=== PATIENT | female | born 1980 | race Caucasian/White ===

== ENCOUNTER 2019-04-22 22:39 | Emergency (ER) | payer SELFPAY ==
[2019-04-22 23:58] LABS: APPEARANCE,URINE CLEAR; BILIRUBIN,URINE NEGATIVE (NEGATIVE); GLUCOSE, URINE NEGATIVE (NEGATIVE); KETONES,URINE NEGATIVE (NEGATIVE); LEUKOCYTE ESTERASE,URINE NEGATIVE (NEGATIVE); NITRITE,URINE NEGATIVE (NEGATIVE); PROTEIN,URINE NEGATIVE (NEGATIVE); UROBILINOGEN,URINE NEGATIVE mg/dL (<2.0)
[2019-04-22 23:59] LABS: URINE SPECIFIC GRAVITY 1.016
[2019-04-23] LABS: COLOR,URINE DARK YELLOW
[2019-04-23 00:11] LABS: ABSOLUTE BASOPHILS # (AUTO) 0.1 10^3/uL (0.0-0.2); ABSOLUTE EOSINOPHILS # (AUTO) 0.2 10^3/uL (0.0-0.6); ABSOLUTE LYMPHOCYTES (AUTO) 1.9 10^3/uL (0.5-4.7); ABSOLUTE MONOCYTES (AUTO) 0.6 10^3/uL (0.1-1.4); BASOPHILS % (AUTO) 0.4 % (0-2); EOSINOPHILS % (AUTO) 1.5 % (0-6); HEMATOCRIT 39.4 % (36.0-47.0); HEMOGLOBIN 13.4 g/dL (12.0-15.5); LYMPHOCYTES % (AUTO) 15.1 % (13-45); MEAN CORPUSCULAR HEMOGLOBIN 32.2 pg (27.0-33.4); MEAN CORPUSCULAR HGB CONC 33.9 g/dL (32.0-36.0); MEAN CORPUSCULAR VOLUME 95 fl (80-97); MONOCYTES % (AUTO) 4.8 % (3-13); PLATELET COUNT 375 10^3/uL (150-450); RED BLOOD COUNT 4.15 10^6/uL (3.72-5.28); RED CELL DISTRIBUTION WIDTH 13.3 % (11.5-14.0); SEGMENTED NEUTROPHILS % (AUTO) 78.2 % (42-78); TOTAL CELLS COUNTED % (AUTO) 100 %; WHITE BLOOD COUNT 12.8 10^3/uL (4.0-10.5)
--- NOTE | 2019-04-23 00:47 | ER Document Report ---
ED General - General Chief Complaint: Abdominal Pain Stated Complaint: LEFT ABDOMINAL PAIN Time Seen by Provider: 04/23/19 00:21 TRAVEL OUTSIDE OF THE [place] IN LAST 30 DAYS: No - HPI Onset: Other Onset/Duration: Gradual - Yesterday Quality of pain: Achy Severity: Moderate - See HPI - Related Data Allergies/Adverse Reactions: meperidine [From Demerol] Allergy (Verified 04/22/19 23:06) Past Medical History - Social History Smoking Status: Smoker,Current Status Unk Chew tobacco use (# tins/day): No Frequency of alcohol use: Rare Drug Abuse: None Family History: None Patient has suicidal ideation: No Patient has homicidal ideation: No Physical Exam - Vital signs Vitals: Temp Pulse Resp BP Pulse Ox 98.3 F 101 H 18 132/82 H 99 04/22/19 22:49 04/22/19 22:49 04/22/19 22:49 04/22/19 22:49 04/22/19 22:49 - Notes Notes: By paramedics complaining of abdominal pain that started yesterday. His pain gradually got progressively worse. Localized in the left lower quadrant and constant and nonradiating. He has had some nausea to up once earlier today but none since then. Decreased which she is tolerating liquids well and does not increase the pain. She denies any diarrhea dysuria vaginal bleeding or discharge. History of similar type of pain fever she describes the pain as an achy sensation. There are no increasing or decreasing factors Medical history is unremarkable she is on no meds. Social history he does smoke and drink. Her last menstrual period was the 17th. For period now. Denies any previous history of ovarian cyst Review of systems all systems were reviewed and acutely negative except as in HPI Exam exam PHYSICAL EXAMINATION: As were vital signs noted in triage note reviewed GENERAL: Well-appearing, well-nourished and in no acute distress. HEAD: Atraumatic, normocephalic. EYES: Pupils equal round and reactive to light, extraocular movements intact, sclera anicteric, conjunctiva are normal. ENT: nares patent, oropharynx clear without exudates. Moist mucous membranes. NECK: Normal range of motion, supple without lymphadenopathy LUNGS: Breath sounds clear to auscultation bilaterally and equal. No wheezes rales or rhonchi. HEART: Regular rate and rhythm without murmurs ABDOMEN: Tenderness in the right lower quadrant which she says referred to the left side. Palpation she has no pain is no percussion tenderness. The left lower quadrant with percussion tenderness. Pain increases with abduction of the hip abduction of the right hip. EXTREMITIES: Normal range of motion, no pitting or edema. No cyanosis. Back is nontender in the midline no a no CVA tenderness NEUROLOGICAL: No focal neurological deficits. Moves all extremities spontaneously and on command. PSYCH: Normal mood, normal affect. SKIN: Warm, Dry, normal turgor, no rashes or lesion Course - Re-evaluation Re-evalutation: 04/23/19 03:02 ED patient is remained stable was given 1 dose of morphine and is resting more comfortably also given a dose of Unasyn Medical decision-making patient presents with left lower quadrant pain x1 day. He has evidence of diverticulitis findings I do not suspect an ovarian torsion feeling better this morning patient be discharged home. He will be treated with Augmentin and Vicodin which is taken before. She was warned about side effects of medications , I discussed the laboratory findings diagnosis and discharge instructions with patient and questions answered - Vital Signs Vital signs: Temp Pulse Resp BP Pulse Ox 98.3 F 101 H 18 128/60 H 99 04/22/19 22:49 04/22/19 22:49 04/22/19 22:49 04/23/19 01:45 04/22/19 22:49 - Laboratory Result Diagrams: 04/22/19 23:55 04/23/19 02:14 Laboratory results interpreted by me: 04/22/19 04/23/19 23:55 02:14 WBC 12.8 H Absolute Neuts (auto) 10.0 H Seg Neutrophils % 78.2 H Carbon Dioxide 20 L Discharge - Discharge Clinical Impression: Diverticulitis Abdominal pain Qualifiers: Abdominal location: left lower quadrant Qualified Code(s): R10.32 - Left lower quadrant pain Disposition: HOME, SELF-CARE Instructions: Abdominal Pain ([facility]), Oral Narcotic Medication ([facility]), Pain Medication Injection ([facility]) Additional Instructions: Please review the discharge instructions THE Pain medications may cause drowsiness. Do not take them with Tylenol Drink plenty of fluids Follow-up with your family doctor in 2 to 3 days if not better otherwise in 2 weeks. Return to the ED if you get worse Prescriptions: Amox Tr/Potassium Clavulanate [Augmentin 875-125 Tablet] 1 tab PO TID 7 Days #21 tablet Saccharomyces Boulardii [Florastor] 250 mg PO BID #20 capsule Hydrocodone/Acetaminophen [[place] 5-325 Tablet] 1 each PO Q6H PRN #12 tablet PRN Reason: Ondansetron HCl [Zofran 4 mg Tablet] 1 tab PO Q4H PRN #10 tablet PRN Reason: Forms: Return to Work
[2019-04-23] MEDS ORDERED: MORPHINE SULFATE 10 MG/ML INJ IV ONE (01:44)
[2019-04-23] MEDS ORDERED: ONDANSETRON HCL INJ/PF 4 MG/2 ML SDV IV ONE (01:44)
--- NOTE | 2019-04-23 02:01 | RADIOLOGY REPORT (SQ) ---
EXAM DESCRIPTION: CT ABDOMEN PELVIS WITH IV CONTRAST COMPLETED DATE/TME: 04/23/2019 00:49 CLINICAL HISTORY: Left lower quadrant pain. HCG NEGATIVE COMPARISON: None Available. TECHNIQUE: CT of the abdomen and pelvis performed following IV administration of 89 mL of Omnipaque 350. FINDINGS: Lung Bases: The visualized lung bases are clear. Bones: Mild degenerative change of the visualized thoracic and lumbar spine. Abdomen: Liver: The liver has normal size and density. No intrahepatic mass or biliary dilatation. Gallbladder: Prior cholecystectomy. Spleen, Pancreas, and Adrenal Glands: The spleen, pancreas, and adrenal glands are unremarkable. Kidneys: The kidneys have normal size without evidence of solid mass or hydronephrosis. Vasculature: The aorta and IVC have normal caliber and position. The portal vein is patent. The proximal visceral and renal arteries are patent. Stomach: Small hiatal hernia. Other: No free intraperitoneal air. Small amount of free fluid. Pelvis: Bladder: Urinary bladder is unremarkable. Bowel: Short segment wall thickening with pericolic inflammatory change. Scattered diverticula of the colon. No pericolic abscess formation. Appendix: Normal appendix. Pelvis: Uterus is not enlarged. Right corpus luteal cyst. IMPRESSION: 1. Findings compatible with mild acute uncomplicated diverticulitis of the sigmoid colon. This exam was performed according to our departmental dose-optimization program, which includes automated exposure control, adjustment of the mA and/or kV according to patient size and/or use of iterative reconstruction technique.
[2019-04-23] MEDS ORDERED: AMPICILLIN SOD/SULBACTAM 3 GM VIAL IV ONE (02:20)
[2019-04-23 03:06] LABS: ALBUMIN 4.1 g/dL (3.5-5.0); ALKALINE PHOSPHATASE 70 U/L (38-126); ANION GAP 11 (5-19); ASPARTATE AMINO TRANSFERASE 16 U/L (14-36); BILIRUBIN,DIRECT 0.1 mg/dL (0.0-0.4); BILIRUBIN,TOTAL 1.1 mg/dL (0.2-1.3); BLOOD UREA NITROGEN 9 mg/dL (7-20); CALCIUM 8.9 mg/dL (8.4-10.2); CARBON DIOXIDE 20 mmol/L (22-30); CHLORIDE 107 mmol/L (98-107); GLUCOSE 88 mg/dL (75-110); POTASSIUM 4.2 mmol/L (3.6-5.0); TOTAL PROTEIN 7.3 g/dL (6.3-8.2)
[2019-04-23 04:00] VITALS: BP 125/64
== END 2019-04-23 03:55 | disposition home or self-care (01) ==
LOC: ER 22:39
DX: K57.92 Diverticulitis of intestine, part unspecified, without perforation or abscess without bleeding (principal); R10.32 Left lower quadrant pain; R10.813 Right lower quadrant abdominal tenderness; F17.200 Nicotine dependence, unspecified, uncomplicated
CPT/HCPCS: 99284; 96374; 96375; 36415; 83690; 85025; 81025; 80053; 81001; 74177; J0295; J2270; J2405